=== PATIENT | female | born 1950 | race Caucasian/White ===

== ENCOUNTER 2020-04-24 17:26 | Emergency (ER) | payer MEDICARE, OTHER ==
[~2020-04-24] VITALS: Ht 165.1 cm; Wt 78.2 kg
[2020-04-24] MEDS ORDERED: NS IV 1000 ML 1,000 ML IV SCH (17:45)
[2020-04-24] MEDS ORDERED: ONDANSETRON 4 MG/2 ML (SDV) Z0FRAN IVP ONE (17:45)
[2020-04-24] MEDS ORDERED: KETOROLAC 30 MG/ML VIAL IVP ONE (17:45)
[2020-04-24 17:53] LABS: HEMATOCRIT 39 % (35-52); MEAN CORPUSCULAR HEMOGLOBIN 31 PG (25-34); MEAN CORPUSCULAR HGB CONC 34 G/DL (32-36); MEAN CORPUSCULAR VOLUME 92 FL (80-99); MEAN PLATELET VOLUME 10.1 FL (7.4-10.4); PLATELET COUNT 224 10^3/uL (130-400); WHITE BLOOD COUNT 15.2 10^3/uL (4.3-11.0)
[2020-04-24 17:54] LABS: BASOPHILS % (AUTO) 0 % (0-10); EOSINOPHILS # (AUTO) 0.2 10^3/uL (0.0-0.3); EOSINOPHILS % (AUTO) 1 % (0-10); LYMPHOCYTES # (AUTO) 2.4 X 10^3 (1.0-4.0); LYMPHOCYTES % (AUTO) 16 % (12-44); MONOCYTES # (AUTO) 1.3 X 10^3 (0.0-1.0); MONOCYTES % (AUTO) 9 % (0-12); NEUTROPHILS # (AUTO) 11.3 X 10^3 (1.8-7.8); NEUTROPHILS % (AUTO) 74 % (42-75)
--- NOTE | 2020-04-24 18:11 | ED General ---
General Chief Complaint: Lower Extremity Stated Complaint: LEFT LEG PAIN History of Present Illness Date Seen by Provider: Apr 24, 2020 Time Seen by Provider: 18:09 Initial Comments Patient presenting to the emergency department for evaluation of left flank pain that has been going on since Thursday evening and she said it went away by Thursday morning and was doing well until earlier this afternoon she started having extreme left flank pain reading towards left abdomen and was associated with episodes of nausea and vomiting. She called 911 and EMS gave her 100 mics of fentanyl and she says her pain is much better. She denies any similar pain or prior kidney stones. She is in no obvious distress with normal vital signs. Allergies and Home Medications Allergies Coded Allergies: No Known Drug Allergies (Unverified , 04/24/20) Patient Home Medication List Home Medication List Reviewed: Yes Review of Systems Review of Systems Constitutional: no symptoms reported EENTM: no symptoms reported Respiratory: no symptoms reported Cardiovascular: no symptoms reported Gastrointestinal: abdominal pain (LUQ), nausea, vomiting Genitourinary: frequency Musculoskeletal: back pain Skin: no symptoms reported Psychiatric/Neurological: No Symptoms Reported All Other Systems Reviewed Negative Unless Noted: Yes Physical Exam Vital Signs Vital Signs - First Documented 04/24/20 17:26 Temp 37.0 Pulse 78 Resp 16 B/P (MAP) 156/56 (89) Pulse Ox 97 O2 Delivery Room Air Capillary Refill : Height, Weight, BMI Height: '" Weight: lbs. oz. kg; BMI Method: General Appearance: No Apparent Distress, WD/WN HEENT: PERRL/EOMI Neck: Supple Respiratory: Lungs Clear, No Respiratory Distress Cardiovascular: Regular Rate, Rhythm Gastrointestinal: Non Tender, Soft Back: Normal Inspection Extremity: Normal Capillary Refill Neurologic/Psychiatric: Alert, Oriented x3 Skin: Warm/Dry Progress/Results/Core Measures Suspected Sepsis SIRS Temperature: Pulse: Respiratory Rate: Laboratory Tests 04/24/20 17:36: White Blood Count 15.2H Blood Pressure / Mean: Laboratory Tests 04/24/20 17:36: Creatinine 1.25, Platelet Count 224, Total Bilirubin 1.2H Results/Orders Lab Results Laboratory Tests Test 04/24/20 17:36 04/24/20 17:40 Range/Units White Blood Count 15.2 H 4.3-11.0 10^3/uL Red Blood Count 4.24 L 4.35-5.85 10^6/uL Hemoglobin 13.0 11.5-16.0 G/DL Hematocrit 39 35-52 % Mean Corpuscular Volume 92 80-99 FL Mean Corpuscular Hemoglobin 31 25-34 PG Mean Corpuscular Hemoglobin Concent 34 32-36 G/DL Red Cell Distribution Width 12.6 10.0-14.5 % Platelet Count 224 130-400 10^3/uL Mean Platelet Volume 10.1 7.4-10.4 FL Immature Granulocyte % (Auto) 0 % Neutrophils (%) (Auto) 74 42-75 % Lymphocytes (%) (Auto) 16 12-44 % Monocytes (%) (Auto) 9 0-12 % Eosinophils (%) (Auto) 1 0-10 % Basophils (%) (Auto) 0 0-10 % Neutrophils # (Auto) 11.3 H 1.8-7.8 X 10^3 Lymphocytes # (Auto) 2.4 1.0-4.0 X 10^3 Monocytes # (Auto) 1.3 H 0.0-1.0 X 10^3 Eosinophils # (Auto) 0.2 0.0-0.3 10^3/uL Basophils # (Auto) 0.0 0.0-0.1 10^3/uL Immature Granulocyte # (Auto) 0.0 0.0-0.1 10^3/uL Neutrophils % (Manual) 69 % Lymphocytes % (Manual) 21 % Monocytes % (Manual) 10 % Eosinophils % (Manual) 0 % Basophils % (Manual) 0 % Band Neutrophils 0 % Sodium Level 139 135-145 MMOL/L Potassium Level 4.1 3.6-5.0 MMOL/L Chloride Level 103 98-107 MMOL/L Carbon Dioxide Level 24 21-32 MMOL/L Anion Gap 12 5-14 MMOL/L Blood Urea Nitrogen 23 H 7-18 MG/DL Creatinine 1.25 0.60-1.30 MG/DL Estimat Glomerular Filtration Rate 42 BUN/Creatinine Ratio 18 Glucose Level 113 H 70-105 MG/DL Calcium Level 9.2 8.5-10.1 MG/DL Corrected Calcium 9.0 8.5-10.1 MG/DL Total Bilirubin 1.2 H 0.1-1.0 MG/DL Aspartate Amino Transf (AST/SGOT) 30 5-34 U/L Alanine Aminotransferase (ALT/SGPT) 26 0-55 U/L Alkaline Phosphatase 80 40-136 U/L Total Protein 6.9 6.4-8.2 GM/DL Albumin 4.2 3.2-4.5 GM/DL Urine Color YELLOW Urine Clarity CLEAR Urine pH 6.0 5-9 Urine Specific [place] 1.020 1.016-1.022 Urine Protein NEGATIVE NEGATIVE Urine Glucose (UA) NEGATIVE NEGATIVE Urine Ketones 1+ H NEGATIVE Urine Nitrite NEGATIVE NEGATIVE Urine Bilirubin NEGATIVE NEGATIVE Urine Urobilinogen 0.2 < = 1.0 MG/DL Urine Leukocyte Esterase NEGATIVE NEGATIVE Urine RBC (Auto) 2+ H NEGATIVE Urine RBC 2-5 H /HPF Urine WBC 0-2 /HPF Urine Squamous Epithelial Cells 0-2 /HPF Urine Crystals NONE /LPF Urine Bacteria NEGATIVE /HPF Urine Casts NONE /LPF Urine Mucus NEGATIVE /LPF Urine Culture Indicated NO My Orders Orders - DEONNA AGUILAR DO Cbc With Automated Diff (04/24/20 17:36) Comprehensive Metabolic Panel (04/24/20 17:36) Ua Culture If Indicated (04/24/20 17:36) Iv/Invasive Line Insertion .IV start (04/24/20 17:36) Ondansetron Injection (Zofran Injectio (04/24/20 17:45) Ketorolac Injection (Toradol Injection) (04/24/20 17:45) Ns Iv 1000 Ml (Sodium Chloride 0.9%) (04/24/20 17:45) Ct Abd/Pelvis Wo(Kidney Stone) (04/24/20 17:36) Manual Differential (04/24/20 17:36) Hydromorphone Injection (Dilaudid Inject (04/24/20 18:30) Rx-Oxycodone/Apap 5-325 Mg (Rx-Percocet (04/24/20 19:30) Rx-Oxycodone/Apap 5-325 Mg (Rx-Percocet (04/24/20 19:19) Oxycodone/Apap 5/325mg Tablet (Percocet (04/24/20 19:30) Tamsulosin Capsule (Flomax Capsule) (04/24/20 19:30) Medications Given in ED Current Medications Medications Dose Ordered Sig/Racheal Route Start Time Stop Time Status Last Admin Dose Admin Hydromorphone HCl 1 mg ONCE ONCE IVP 04/24/20 18:30 04/24/20 18:31 DC 04/24/20 18:37 1 MG Ketorolac Tromethamine 15 mg ONCE ONCE IVP 04/24/20 17:45 04/24/20 17:46 DC 04/24/20 18:33 15 MG Ondansetron HCl 4 mg ONCE ONCE IVP 04/24/20 17:45 04/24/20 17:46 DC 04/24/20 18:32 4 MG Oxycodone/ Acetaminophen 1 ea Q4H PRN PO 04/24/20 19:30 04/24/20 19:24 1 EA Vital Signs/I&O 04/24/20 17:26 Temp 37.0 Pulse 78 Resp 16 B/P (MAP) 156/56 (89) Pulse Ox 97 O2 Delivery Room Air Capillary Refill : Progress Note : Progress Note Patient with pain that may be typical of a kidney stones will go ahead and check labs urinalysis CT treat symptoms and reassess. Patient does have a left sided distal ureter calculus approximately 5 mm in size causing hydronephrosis. I discussed findings with patient and that she has less than 50% chance of passing the stone. She did get pain relief here in the emergency department and felt comfortable going home so we will let her do a trial a passage. I told her she would need a follow with Dr. Bell, of the urology services within the next several days to ensure improvement and if she is having worsening pain fevers vomiting or other general concerns to come back to emergency department immediately. Patient aware and agreeable with plan for discharge and verbalized understanding of the need for short-term follow-up and strict ED return precautions discussed as above. Departure Impression Primary Impression: Ureter colic Additional Impression: Hydronephrosis Qualified Codes: N13.30 - Unspecified hydronephrosis Disposition: 01 HOME, SELF-CARE Condition: Stable Departure-Patient Inst. Referrals: TAHIR BELL MD Patient Instructions: Renal Colic (DC) Add. Discharge Instructions: Take 600mg of ibuprofen every 6 hours. Drink plenty of fluids. Percocet for pain and zofran for nausea. Follow with Dr. Bell. Come back to ED with worsening pain, fevers, vomiting, or other general concerns. Thank you! All discharge instructions reviewed with patient and/or family. Voiced u nderstanding. Scripts Ondansetron (Ondansetron Odt) 4 Mg Tab.rapdis 4 MG PO Q6H PRN for NAUSEA/VOMITING-1ST LINE, #14 TAB Prov: DEONNA AGUILAR DO 04/24/20 Oxycodone HCl/Acetaminophen (Percocet 5-325 mg Tablet) 1 Each Tablet 1 TAB PO Q4H for PAIN-MODERATE MDD 6 TABS for 7 Days, #14 TAB Prov: DEONNA AGUILAR DO 04/24/20 Tamsulosin HCl (Flomax) 0.4 Mg Cap 0.4 MG PO qhs, #10 CAP Prov: DOENNA AGUILAR DO 04/24/20 DEONNA AGUILAR DO Apr 24, 2020 18:11
[2020-04-24 18:14] LABS: BACTERIA,URINE NEGATIVE /HPF; BILIRUBIN,URINE NEGATIVE (NEGATIVE); CLARITY,URINE CLEAR; COLOR,URINE YELLOW; GLUCOSE, URINE (UA) NEGATIVE (NEGATIVE); KETONES,URINE 1+ (NEGATIVE); LEUKOCYTE ESTERASE ,URINE NEGATIVE (NEGATIVE); NITRITE,URINE NEGATIVE (NEGATIVE); PROTEIN,URINE NEGATIVE (NEGATIVE); SQUAMOUS EPITHELIAL CELL,UR 0-2 /HPF; WBC,URINE 0-2 /HPF
[2020-04-24 18:15] LABS: BAND NEUTROPHILS 0 %; BASOPHILS % (MANUAL) 0 %; EOSINOPHILS % (MANUAL) 0 %; LYMPHOCYTES % (MANUAL) 21 %; MONOCYTES % (MANUAL) 10 %; NEUTROPHILS % (MANUAL) 69 %
[2020-04-24 18:16] LABS: POTASSIUM 4.1 MMOL/L (3.6-5.0)
[2020-04-24 18:17] LABS: ALBUMIN 4.2 GM/DL (3.2-4.5); BILIRUBIN,TOTAL 1.2 MG/DL (0.1-1.0); CALCIUM 9.2 MG/DL (8.5-10.1); CREATININE SERUM 1.25 MG/DL (0.60-1.30); TOTAL PROTEIN 6.9 GM/DL (6.4-8.2)
--- NOTE | 2020-04-24 18:17 | Diagnostic Imaging Report ---
PROCEDURE: CT urinary tract, rule out kidney stone. TECHNIQUE: Multiple contiguous axial images were obtained through the abdomen and pelvis without the use of intravenous contrast. Auto Exposure Controls were utilized during the CT exam to meet ALARA standards for radiation dose reduction. INDICATION: Lower abdominal and flank pain, kidney stone. COMPARISON: None. FINDINGS: The lung bases are clear. There is a large gallstone present without cholecystitis. There is vpcg-[id number] left-sided hydronephrosis and hydroureter secondary to an obstructive 5 mm stone at left UVJ. The right kidney and ureter are unremarkable. There is some slight perinephric fat stranding. There is no fluid collection. Remainder of the solid organs are grossly normal. There is mild constipation throughout the colon. The small bowel is normal. There is no free air or free fluid. Small uterine fibroid is present. No lymphadenopathy identified. Osseous structures are age-appropriate. IMPRESSION: 1. Qurb-xu-kgnowkxo left-sided hydronephrosis secondary to an obstructive 5 mm stone in distal left UVJ. 2. Cholelithiasis without cholecystitis. 3. Slight constipation. Dictated by: Dictated on workstation # [id number]
[2020-04-24] MEDS ORDERED: HYDROmorphone 2 MG/ML VIAL (DILAUDID) IVP ONE (18:30)
--- NOTE | 2020-04-24 19:02 | NUR ---
AFTER GIVING PAIN MEDICATIONS, PATIENTS OXYGEN SATURATION DROPPED TO 83%. NASAL CANULA WAS APPLIED AT 3 LITERS OF OXYGEN.
--- NOTE | 2020-04-24 19:05 | NUR ---
REPORT WAS GIVEN TO [facility] AT THIS TIME. CARE WAS TRANSFERRED.
[2020-04-24] MEDS ORDERED: RX-OXYCODONE/APAP 5-325 MG #4 TAB PK PO ONE (19:19)
[2020-04-24] MEDS ORDERED: RX-ONDANSETRON 4 MG ODT (ZOFRAN) PPK #4 PO STA (19:27)
[2020-04-24] MEDS ORDERED: RX-OXYCODONE/APAP 5-325 MG #4 TAB PK PO PRN (19:30)
[2020-04-24] MEDS ORDERED: TAMSULOSIN 0.4 MG (FLOMAX) CAP PO ONE (19:30)
[2020-04-24] MEDS ORDERED: oxyCODONE/APAP 5/325MG (PERCOCET 5) TABLET PO ONE (19:30)
[2020-04-24] MEDS ORDERED: ONDA4TAB11 PO (19:32)
[2020-04-24] MEDS ORDERED: TMSL.4C PO (19:32)
[2020-04-24] MEDS ORDERED: OXYC1TAB87 PO (19:32)
[2020-04-24 20:24] VITALS: BP 123/61
[2020-04-24] MEDS ORDERED: ONDANSETRON 4 MG (ZOFRAN) ORAL DISSOLVE TAB PO STA (20:45)
== END 2020-04-24 21:15 | disposition home or self-care (01) ==
LOC: ER FS 17:27
DX: N13.2 Hydronephrosis with renal and ureteral calculous obstruction (principal)
CPT/HCPCS: 36415; 74176; 80053; 81000; 85007; 85027

== ENCOUNTER 2020-04-26 14:51 | Outpatient (RCR) | payer MEDICARE, OTHER ==
[~2020-04-26] VITALS: Ht 165 cm; Wt 78.1 kg
[~2020-04-26 14:51] MED LIST changes: -CHOL20003 PO; -MAGN400C PO; -MULT-1136 PO
[2020-04-26] MEDS ORDERED: MAGN400C PO (15:00)
[2020-04-26] MEDS ORDERED: CHOL20003 PO (15:00)
[2020-04-26] MEDS ORDERED: MULT-1136 PO (15:00)
== END 2020-04-26 15:20 | disposition home or self-care (01) ==
LOC: PREOP 14:51
PROVIDERS: ATTEND Urology
DX: Z01.818 Encounter for other preprocedural examination (principal)

== ENCOUNTER → 2020-04-26 | Outpatient (CLI) | payer MEDICARE, OTHER ==
[~2020-04-26] MED LIST: CHOL20003 PO; MAGN400C PO; MULT-1136 PO; ONDA4TAB11 PO; OXYC1TAB87 PO; TMSL.4C PO
--- NOTE | 2020-04-26 12:44 | Diagnostic Imaging Report ---
INDICATION: Nephrolithiasis. FINDINGS: Bowel gas pattern is nonspecific. Persistent 5 mm stone near the left UVJ. There is some more heterogeneous calcification just above this likely small calcified fibroid. There are no other abnormal abdominal calcifications. IMPRESSION: Persistent 5 mm stone near the left UVJ. Small calcified fibroid in the uterus. Nonspecific bowel gas pattern. Dictated by: Dictated on workstation # [id number]
== END ==
LOC: RAD 12:09
PROVIDERS: ATTEND Urology
DX: D25.9 Leiomyoma of uterus, unspecified (principal); N20.2 Calculus of kidney with calculus of ureter
CPT/HCPCS: 74018

== ENCOUNTER → 2020-04-27 | Outpatient (CLI) | payer MEDICARE, OTHER ==
[~2020-04-27] MED LIST changes: +ACHD5005 PO; +CHOL20003 PO; +MAGN400C PO; +MULT-1136 PO; +NITR100C PO; +PHEN-640 PO
== END ==
LOC: LAB FS 10:34
PROVIDERS: ATTEND Urology
DX: Z01.812 Encounter for preprocedural laboratory examination (principal); Z20.828 Contact with and (suspected) exposure to other viral communicable diseases
CPT/HCPCS: 87635

== ENCOUNTER 2020-05-01 06:22 | Day surgery (SDC) | payer MEDICARE, OTHER ==
[2020-05-01] VITALS (9 sets, daily range): BP systolic 131–171; BP diastolic 72–86
[~2020-05-01] VITALS: Ht 165 cm; Wt 78.1 kg
[~2020-05-01 06:22] MED LIST changes: -ACHD5005 PO; -NITR100C PO; -PHEN-640 PO
--- NOTE | 2020-05-01 07:23 | Progress Note-Pre Operative ---
Pre-Operative Progress Note H&P Reviewed The H&P was reviewed, patient examined and no changes noted. Date Seen by Provider: May 01, 2020 Time Seen by Provider: 07:23 Date H&P Reviewed: May 01, 2020 Time H&P Reviewed: 07:23 Pre-Operative Diagnosis: LT URETERAL STONE TAHIR BELL MD May 01, 2020 07:23
[2020-05-01] MEDS ORDERED: cefTRIAXone FOR IV USE 1,000 MG in WATER (STERILE) FOR INJECTION 10 ML IV ONE (07:30)
[2020-05-01] MEDS ORDERED: LIDOCAINE PF 2% 5 ML (XYLOCAINE) VIAL ONE (07:37)
[2020-05-01] MEDS ORDERED: SEVOFLURANE (ULTANE) 15 ML INHAL SOLN ONE ×2 (07:37→08:59)
[2020-05-01] MEDS ORDERED: ONDANSETRON 4 MG/2 ML (SDV) Z0FRAN ONE (07:37)
[2020-05-01] MEDS ORDERED: fentaNYL INJECTION 100 MCG/2 ML AMP ONE (07:37)
[2020-05-01] MEDS ORDERED: MIDAZOLAM 2 MG/2 ML (VERSED) VIAL ONE (07:37)
--- NOTE | 2020-05-01 07:38 | Diagnostic Imaging Report ---
Clinical indications: Patient with left lower ureteral stone. Exam: KUB x-ray. Comparison: X-ray of the abdomen dated 04/26/2020. CT scan abdomen and pelvis without contrast dated 04/24/2020. Findings: The previously seen stone overlying the left midline low pelvis region is resolved which correlated to a stone in the left UVJ region better seen on comparison CT scan. There are no definite urinary tract stones seen on this exam. Again seen calcifications overlying the pelvis which may represent fibroid calcifications. Gallstone is again noted. There is a nonobstructed bowel gas pattern. There is no evidence of abdominal free air. There are small degenerative spurs involving the lower lumbar spine. Impression: 1: Interval resolution of the previously seen stone overlying the left midline pelvis region which correlates to the stone in the left UVJ. If there is continued concern for urinary tract stone, CT scan would better evaluate. 2: The remainder of this exam shows no significant interval change compared to the prior study of comparison. Dictated by: Dictated on workstation # [id number]
[2020-05-01] MEDS ORDERED: LACTATED RINGERS 1,000 ML IV SCH (08:00)
[2020-05-01] MEDS ORDERED: TMSL.4C PO (08:25)
[2020-05-01] MEDS ORDERED: NITR100C PO (08:25)
[2020-05-01] MEDS ORDERED: ACHD5005 PO (08:25)
[2020-05-01] MEDS ORDERED: NEOSTIGMINE 3 MG/3 ML VIAL ONE (08:59)
[2020-05-01] MEDS ORDERED: GLYCOPYRROLATE 0.2 MG/ML (ROBINUL) 2 ML VIAL ONE (08:59)
[2020-05-01] MEDS ORDERED: ROCURONIUM 10 MG/ML 5 ML SYRINGE IV ONE (09:01)
[2020-05-01] MEDS ORDERED: proPOfol 200 MG/20 ML (DIPRIVAN) VIAL IV ONE (09:01)
--- NOTE | 2020-05-01 09:08 | Progress Note-Post Operative ---
Post-Operative Progess Note Surgeon (s)/Lunch Truck Driver (s) Surgeon TAHIR BELL MD Lunch Truck Driver: NONE Pre-Operative Diagnosis LT URETERAL STONE Post-Operative Diagnosis SAME AND 2/3 CYSTOCELE Procedure & Operative Findings Date of Procedure 05/01/20 Procedure Performed/Findings LT URETEROSCOPY WITH STONE LITHOTRIPSY Anesthesia Type GENERAL Estimated Blood Loss Estimated blood loss (mL): NONE Specimens/Packing Specimens Removed NONE Packing: NONE TAHIR BELL MD May 01, 2020 09:08
--- NOTE | 2020-05-01 09:09 | Discharge Inst-Urology ---
Discharge Inst-Urology Reconcile Patient Problems Problems Reviewed?: Yes Final Diagnosis LT DISTAL URETERAL STONE Patient Instructions/Follow Up Plan/Assessment/Instructions Please make appointment to been seen in office in 2 weeks. Increase oral fluids for 48 hours and then as needed. Diet and Activity as tolerated. If questions or concerns contact your physician Or seek help at emergency department. TAHIR BELL MD May 01, 2020 09:09
[2020-05-01] MEDS ORDERED: ONDANSETRON 4 MG/2 ML (SDV) Z0FRAN IVP PRN (09:30)
[2020-05-01] MEDS ORDERED: morphine INJ 10 MG/ML 1ML (SYR OR VIAL) IVP ONE (09:30)
--- NOTE | 2020-05-01 09:50 | NUR ---
TO AMB SURG FROM PAR PER CART. ALERT, DENIES COMPLAINTS. PO FLUIDS PROVIDED.
[2020-05-01] MEDS ORDERED: PHEN-640 PO (10:06)
[2020-05-01] MEDS ORDERED: PHENAZOPYRIDINE 100 MG (PYRIDIUM) TABLET PO ONE (10:30)
[2020-05-01] MEDS ORDERED: PHENAZOPYRIDINE 100 MG (PYRIDIUM) TABLET ONE (10:30)
--- NOTE | 2020-05-01 10:35 | NUR ---
REPORTS LEFT FLANK INTERMITTENT DISCOMFORT, RATED 1/NUMERIC. PYRIDIUM 200 MG GIVEN PO FOR PAIN/BLADDER SPASM CONTROL.
--- NOTE | 2020-05-01 10:55 | NUR ---
STATES "I FEEL GOOD, I'M READY TO GO!". DENIES PAIN. HAS VOIDED CLEAR YELLOW URINE, AND TAKING PO FLUIDS WITHOUT PROBLEM. GAIT STEADY WHEN UP WITH ASSIST TO BR.
--- NOTE | 2020-05-01 11:12 | OPERATIVE REPORT ---
DATE OF SERVICE: 05/01/2020 PREOPERATIVE DIAGNOSIS: Left distal ureteral stone. POSTOPERATIVE DIAGNOSES: 1. Left distal ureteral stone. 2. Cystocele, grade II-III. OPERATION PERFORMED: Left ureteroscopy with stone lithotripsy. SURGEON: Jerry Bell MD. ANESTHESIA: General. COMPLICATIONS: None. DESCRIPTION OF PROCEDURE: Under satisfactory general anesthesia and the patient in a lithotomy position, the genitalia were prepped and draped in the usual sterile fashion. Cystoscope was introduced under vision. The bladder was carefully inspected. There were no stones. The intramural portion of the ureter looked kind of edematous and swollen. Using the foroblique lens, I dilated the left ureteral orifice intramural portion to accommodate a semi-rigid ureteroscope, visualized the stone and broke it up with high power two times and broke it completely as the stone was not really hard one and some of the fragments fell into the bladder. I went ahead and removed the ureteroscope up all the way to the kidney and down in an antegrade fashion to make sure there were no more stones or fragments and there was none. I confirmed the integrity of the ureter. The ureteroscope was removed. The cystoscope was reinserted and the bladder was evacuated. The patient tolerated the procedure and anesthesia well and was sent to recovery room in stable condition. It was noted that she had a ____ 3+ cystocele. We will address that with her at the office in two weeks as well as stone prevention. Job ID: [id number] DocumentID: [id number] Dictated Date: 05/01/2020 09:12:08 Meter Tester Polyphase Date: 05/01/2020 11:11:30 Dictated By: JERRY BELL MD
== END 2020-05-01 10:55 | disposition home or self-care (01) ==
LOC: SDC 06:22
PROVIDERS: ATTEND Urology
DX: N13.2 Hydronephrosis with renal and ureteral calculous obstruction (principal); N81.3 Complete uterovaginal prolapse
CPT/HCPCS: 74018; 87081